=== PATIENT | male | born 1930 | race Caucasian/White ===

== ENCOUNTER → 2017-06-02 | Outpatient (CLI) | payer OTHER ==
[~2017-06-02] MED LIST: ACIDOPHILUS PR1 EACH PO; ACYCLOVIR 400400 MG PO; ALENDRONATE; CIPRO; CIPRO250 M1 PO; COLACE 100 MG100 MG PO; COSOPT EYE DROPS5 ML OPHTHALMIC; CYMBALTA30 MG PO; DETROL2 M1 PO; DIPHENHIST25 M2 PO; EXCEDRIN CAPLE1 EACH PO; EYE DROPS15 M1 OP; FAMOTIDINE 20 M20 MG PO; FLAGYL; FLOMAX0.4 MG PO; FLORINEF ACETA0.1 MG PO; FLUCONAZOLE 10100 MG PO; HYDROCODON-ACE1 EAC5 PO; HYDROCODON-ACE1 EAC7; HYDROCODON-ACE1 EAC7 PO; IBUPROFEN 200200 M1 PO; KEFLEX500 MG PO; LEVAQUIN 500 M500 MG PO; LEXAPRO 10 MG T10 MG PO; LEXAPRO20 MG PO; METOPROLOL SUCC25 M1 PO; METOPROLOL TART25 MG PO; MIDODRINE HCL 55 M1 PO; MOM PO; MYRBETRIQ25 MG PO; NOVOLOG100 UNIT/1; PHENERGAN 25 MG25 M1 PO; POTASSIUM PHOS PO; POTASSIUM20 PO; PREDNISONE 5 MG5 MG PO; PREDNISONE PO; PROTONIX40 M1 PO; REGLAN 10 MG TA10 MG PO; TRAMADOL; TRAMADOL 50 MG50 MG PO; TYLENOL325 MG PO; UNICOMPLEX M TA1 TA1 PO; XOPENEX0.63 MG/3 INH
== END ==
LOC: RAD 08:24 → EDSTATUS 08:28 → RAD 10:53 → SPEECH 10:53
DX: R13.12 Dysphagia, oropharyngeal phase (principal)

== ENCOUNTER → 2017-06-04 | Outpatient (CLI) | payer OTHER | LOC: NUC 08:18 | DX: C61 Malignant neoplasm of prostate (principal) ==

== ENCOUNTER 2017-07-09 14:22 | Inpatient (IN) | payer OTHER ==
[~2017-07-09] VITALS: Ht 172.7 cm; Wt 61.2 kg
[~2017-07-09 14:22] MED LIST changes: -HYDROCODON-ACE1 EAC7 PO
[2017-07-09 14:49] VITALS: BP 128/69
[2017-07-09 17:53] LABS: HEMOGLOBIN 10.2 gm/dL (14.0-18.0); MCH 30.4 pg (26.0-34.0); MCHC 32.9 g/dL (28.0-37.0); MCV 92.3 fL (80.0-100.0); PLATELET COUNT 482 thou/uL (150-400); RBC 3.36 mil/uL (4.50-6.00); RDW 14.1 % (10.5-14.5); WBC 12.5 thou/uL (4.0-11.0)
[2017-07-09 18:00] LABS: MANUAL DIFF YES
[2017-07-09 18:02] LABS: ALBUMIN 2.4 g/dL (3.4-5.0); CALCIUM 8.7 mg/dL (8.5-10.1); CREATININE 1.4 mg/dL (0.7-1.3); MAGNESIUM 2.1 mg/dL (1.8-2.4); POTASSIUM 4.1 mmol/L (3.5-5.1); TOTAL BILIRUBIN 0.3 mg/dL (<0.1-1.0); TOTAL PROTEIN 7.4 g/dL (6.4-8.2)
[2017-07-09 19:01] VITALS: BP 116/65
[2017-07-09 19:05] LABS: ABSOLUTE NEUTROPHILS 10.3 thou/uL (1.4-8.2); TOTAL CELL COUNT 100
[2017-07-10 00:16] VITALS: BP 121/61
[2017-07-10 03:27] VITALS: BP 132/67
[2017-07-10 07:13] LABS: HEMATOCRIT 29.8 % (42.0-52.0); HEMOGLOBIN 9.8 gm/dL (14.0-18.0); MCH 30.1 pg (26.0-34.0); MCHC 32.8 g/dL (28.0-37.0); MCV 91.7 fL (80.0-100.0); PLATELET COUNT 469 thou/uL (150-400); RBC 3.25 mil/uL (4.50-6.00); RDW 13.7 % (10.5-14.5); WBC 10.9 thou/uL (4.0-11.0)
[2017-07-10 07:14] LABS: MANUAL DIFF YES
[2017-07-10 07:24] LABS: CALCIUM 8.4 mg/dL (8.5-10.1); CREATININE 1.3 mg/dL (0.7-1.3)
[2017-07-10 07:39] VITALS: BP 133/66
[2017-07-10 08:37] LABS: ABSOLUTE NEUTROPHILS 9.3 thou/uL (1.4-8.2); ANISOCYTOSIS 1+; POLYCHROMASIA OCCASIONAL; TOTAL CELL COUNT 100
[2017-07-10 12:12] VITALS: BP 122/70
[2017-07-10 15:04] VITALS: BP 117/59
[2017-07-10 19:04] VITALS: BP 116/65
[2017-07-11 04:34] VITALS: BP 128/66
[2017-07-11 08:09] VITALS: BP 139/82
[2017-07-11 14:02] VITALS: BP 145/85
[2017-07-11 16:30] VITALS: BP 143/87
[2017-07-11 19:40] VITALS: BP 143/79
[2017-07-12 05:46] LABS: HEMOGLOBIN 10.2 gm/dL (14.0-18.0); MCH 30.3 pg (26.0-34.0); MCHC 32.8 g/dL (28.0-37.0); MCV 92.3 fL (80.0-100.0); PLATELET COUNT 472 thou/uL (150-400); RBC 3.36 mil/uL (4.50-6.00); RDW 14.1 % (10.5-14.5); WBC 9.5 thou/uL (4.0-11.0)
[2017-07-12 05:51] LABS: MANUAL DIFF YES
[2017-07-12 05:54] LABS: CALCIUM 7.8 mg/dL (8.5-10.1); CREATININE 1.3 mg/dL (0.7-1.3)
[2017-07-12 06:05] VITALS: BP 130/70
[2017-07-12 08:23] VITALS: BP 145/88
[2017-07-12 09:13] LABS: LARGE PLATELETS OCCASIONAL; TOTAL CELL COUNT 100
[2017-07-12] MEDS ORDERED: AZITHROMYCIN 2250 MG PO (10:34)
[2017-07-12] MEDS ORDERED: AUGMENTIN 875-1 EACH PO (10:34)
[2017-07-12 11:59] VITALS: BP 145/88
[2017-07-12 12:02] VITALS: BP 145/88
== END 2017-07-12 13:34 | disposition home health service (06) | DRG 177 ==
LOC: 4W 14:22 → ENTRNSPT 07-12 13:25 → EDTRNSPTSTS 07-12 13:29 → 4W 07-12 13:34
PROVIDERS: Internal Medicine Endocrinology, Diabetes & Metabolism; Internal Medicine Geriatric Medicine
DX: J69.0 Pneumonitis due to inhalation of food and vomit (principal); E43 Unspecified severe protein-calorie malnutrition; C79.51 Secondary malignant neoplasm of bone; C61 Malignant neoplasm of prostate; H40.9 Unspecified glaucoma; G89.29 Other chronic pain; F32.9 Major depressive disorder, single episode, unspecified; K21.9 Gastro-esophageal reflux disease without esophagitis; N40.0 Benign prostatic hyperplasia without lower urinary tract symptoms; Z88.1 Allergy status to other antibiotic agents; Z91.81 History of falling; Z98.42 Cataract extraction status, left eye; Z98.41 Cataract extraction status, right eye; Z90.49 Acquired absence of other specified parts of digestive tract
CPT/HCPCS: 10047

== ENCOUNTER → 2017-12-17 | Outpatient (CLI) | payer OTHER ==
[~2017-12-17] MED LIST changes: +AUGMENTIN 875-1 EACH PO; +AZITHROMYCIN 2250 MG PO; +CARDIZEM30 MG PO; +OXYBUTYNIN 5 MG5 M2 PO
== END ==
LOC: RAD 11:32
DX: R05 Cough (principal)

== ENCOUNTER 2017-12-23 11:53 | Inpatient (IN) | payer OTHER ==
[~2017-12-23] VITALS: Ht 170.2 cm; Wt 55.8 kg
--- NOTE | ~2017-12-23 | EKG ---
[address] [address] ELECTROCARDIOGRAM REPORT Name: NORAH CARRANZA Room #: 434-P ADM IN M.R.#: [id number] Admission: 12/23/17 Attend Phys: Frandy Raymond MD Discharge: Date of : 30 Report #: [id number] THIS REPORT FOR: //name// Test Date: 2017-12-25 Test Time: 09:28:32 Pat Name: NORAH CARRANZA Department: Room: 434 P Gender: M Contact Center Director: JLAMBELTON : 1930 Requested By: Frandy Raymond Order Number: [id number] MD: Lopez Ureña Measurements Intervals [place] Rate: 113 P: 40 [place]: 153 QRS: -74 QRSD: 121 T: 55 QT: 334 QTc: 458 Interpretive Statements Sinus tachycardia RBBB and LAFB Nonspecific ST segment abnormality Compared to ECG 05/30/2015 07:24:18 Sinus rhythm no longer present Electronically Signed On 12-25-2017 12:26:12 YARD ASSISTANT by Lopez Ureña [email or web address] <ELECTRONICALLY SIGNED> By: Lopez Ureña MD 12/25/17 1226 7 7 Lopez Ureña MD /FRANCINE
--- NOTE | ~2017-12-23 | HC ---
[facility] [place] [address] CONSULTATION Name: NORAH CARRANZA Room #: 434-P [facility] IN M.R.#: [id number] Admission: 12/23/17 Attend Phys: Frandy Raymond MD Discharge: 12/29/17 Date of : 30 Report #: [id number] THIS REPORT FOR: //name// CC: Frandy Franco REASON FOR CONSULTATION: Tachycardia. HISTORY OF PRESENT ILLNESS: The patient is an 87-year-old male presenting with weakness and worsening bronchitis. The patient denies problems with chest pain or chest tightness. He denies any shortness of breath. He denies PND, orthopnea. He denies presyncope or syncope. He has had a couple of recent falls including tripping over some objects, but no gail syncope. I have reviewed all his 12-lead EKGs from this hospitalization, which show sinus tachycardia. There was one that was read as possible atrial flutter, but I believe this is sinus tachycardia as well. REVIEW OF SYSTEMS: A 12-point review of systems was performed and was negative other than what I mentioned above. PAST MEDICAL HISTORY: Includes GI bleed, colectomy, diverticulitis, leg abscess, temporal arteritis, prior renal insufficiency, depression, nonsustained VT, esophagitis. SOCIAL HISTORY: Does not smoke. FAMILY HISTORY: Noncontributory. ALLERGIES: INCLUDE DOXYCYCLINE. MEDICATIONS: Have been reviewed. PHYSICAL EXAMINATION: VITAL SIGNS: Temperature is 36.8, pulse 102, respiration 19, blood pressure 120/77, sats are 95%. GENERAL: He is alert and oriented x 3, no acute distress. HEENT: Oropharynx is clear. NECK: Supple, with no thyromegaly. HEART: Regular rate and rhythm with no murmurs, rubs or gallops. LUNGS: Clear to auscultation bilaterally. ABDOMEN: Soft, nontender, nondistended with no hepatosplenomegaly and no rebound. EXTREMITIES: There is no clubbing, cyanosis or edema. NEUROLOGIC: Cranial nerves 2-12 are intact. LABORATORY DATA: Hemoglobin 9.3, white count 7.3, platelets 351. Chemistries: Sodium 137, potassium 3.9, BUN 12, creatinine 1.1. Troponin is negative x 2. [address] [address] CONSULTATION Name: NORAH CARRANZA LOUIS Room #: [address] [place] [address] IN .R.#: [id number] Admission: 12/23/17 Attend Phys: Frandy Raymond MD Discharge: 12/29/17 Date of : 30 Report #: [id number] ProBNP is 1111. Chest x-ray shows no acute pulmonary process. I have reviewed all his 12-lead EKGs, which show sinus tachycardia. No atrial arrhythmias and no evidence of ischemia. IMPRESSION: Tachycardia. In summary, the patient is an 87-year-old with evidence of sinus tachycardia on his EKG. There are no arrhythmias noted. I believe his tachycardia is likely physiologic and do not recommend any further treatment. He did have an echocardiogram this hospitalization showing an ejection fraction of 55% with no significant valvular disease. As such, I will sign off the case and please call back with any questions. <ELECTRONICALLY SIGNED> By: Chris No MD 01/14/18 1752 1554 11 Chris No MD /nt
--- NOTE | ~2017-12-23 | EKG ---
[address] [address] ELECTROCARDIOGRAM REPORT Name: NORAH CARRANZA Room #: 434-P ADM IN M.R.#: [id number] Admission: 12/23/17 Attend Phys: Frandy Raymond MD Discharge: Date of : 30 Report #: [id number] THIS REPORT FOR: //name// [facility] Test Date: 2017-12-27 Test Time: 13:47:43 Pat Name: NORAH CARRANZA Department: Room: 434 P Gender: M Visual Design Lead: Lindsay FAROOQ : 1930 Requested By: Frandy Raymond Order Number: [id number] MD: Chris No Measurements Intervals [place] Rate: 96 P: 53 HI: 154 QRS: -71 QRSD: 128 T: 58 QT: 373 QTc: 472 Interpretive Statements Sinus rhythm RBBB and LAFB Compared to ECG 12/26/2017 11:12:08 Electronically Signed On 12-27-2017 15:07:55 HYDROELECTRIC COMPONENT MACHINIST by Chris No [email or web address] <ELECTRONICALLY SIGNED> By: Chris No MD 12/27/17 1507 1347 1347 Chris No MD /FRANCINE
--- NOTE | ~2017-12-23 | H ---
[facility] [place] [address] HISTORY AND PHYSICAL Name: NORAH CARRANZA Room #: 434-P [facility] IN M.R.#: [id number] Admission: 12/23/17 Attend Phys: Frandy Raymond MD Discharge: 12/29/17 Date of : 30 Report #: [id number] THIS REPORT FOR: //name// CC: Frandy Franco CHIEF COMPLAINT: Fall, status post severe URI, dehydration, bronchitis with exacerbation. HISTORY OF PRESENT ILLNESS: An 87-year-old male with past medical history significant for trouble with swallowing and thickened liquids, was referred by the [place] physician for admission due to failed outpatient treatment for bronchitis with exacerbation. Recently on prednisone. Persistent symptoms with dehydration and multiple falls in the last month. The patient was in his usual state of health until 2-3 weeks ago, status post URI with cough, phlegm with episodes of aspiration with liquids multiple times. Denies any fever. Positive chills. Denies any chest pain. Positive cough with some clear to yellow to green. Denies any dizziness or lightheadedness. Multiple falls with no loss of consciousness. He hit his face on the left side per his son at bedside. Denies any focal neurological weakness. Denies any complaints of nausea, vomiting or diarrhea. Denies any complaints of palpitations or diaphoresis. Denies any trouble with his vision or hearing. REVIEW OF SYSTEMS: Rest of systems is negative. 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 CURRENT MEDICATIONS AT HOME: Zithromax; Augmentin recently; oxybutynin; hydrocodone with acetaminophen 2 tabs b.i.d. p.r.n.; dorzolamide and timolol, Cosopt 1 gtt. b.i.d.; acetaminophen 325; pantoprazole 40 mg; Reglan 5 mg daily; multivitamin with iron; Celexa; tamsulosin; Excedrin and Detrol 2 mg. He was recently discontinued on tramadol and prednisone, which patient took about 10 days prior, started with 2 tablets b.i.d. and then seems like tapered. ALLERGIES: DOXYCYCLINE. SOCIAL HISTORY: Nonsmoker. History of alcohol use. REVIEW OF SYSTEMS: As described above. PHYSICAL EXAMINATION: VITALS: Reviewed. GENERAL: Pleasant gentleman. Alert and oriented to self and place, [place] [address] HISTORY AND PHYSICAL Name: DILLONNORAH LOUIS Room #: 434-P [facility] IN M.R.#: [id number] Admission: 12/23/17 Attend Phys: Frandy Raymond MD Discharge: 12/29/17 Date of : 30 Report #: [id number] necessarily to time. Seems a little bit emaciated and malnourished. SKIN: Warm and dry. No thyromegaly. NECK: Supple. No distended neck veins. HEENT: Pupils equal, symmetric and reactive to light. Extraocular muscle movements intact. LUNGS: Coarse breath sounds in all lung de los santos, especially in the right upper lobe. CARDIOVASCULAR SYSTEM: S1 irregular. Pulses equal bilaterally. EXTREMITIES: No edema or any bruising noted. No hematomas noted. Homans sign negative. No significant joint effusions or musculoskeletal abnormalities noted on examination. ABDOMEN: Soft and nontender. Bowel sounds positive. No palpable organomegaly. NEUROLOGIC: Full neurologic examination, gait was not evaluated due to risk of fall acutely with acute renal failure and dehydration. Otherwise, alert, awake and oriented. No signs of acute CVA. No focal neurological weakness noted. Unable to perform full neurological examination due to flail, debilitated condition. LABORATORY EVALUATION: Mildly elevated white count of 12.3. UA: Trace protein. Leukocyte esterase negative. BUN and creatinine of 28/1.5. ____ normal, less than 0.9. Mildly elevated alk phos up to 308. Lipase 56. Troponin negative. H and H of 10/32.8. Chest x-ray negative. No CTA performed as no recent change in mental status noted, other than chronic cognitive impairment. ASSESSMENT AND PLAN: An 87-year-old male with multiple medical problems, status post multiple falls, recent upper respiratory infection, negative for influenza, bronchitis with exacerbation, probably complicated by bronchitis/aspiration pneumonitis. Await treatment as chest x-ray clear. Elevated white count could be secondary to steroids. Recently finished 2 courses of antibiotics with Zithromax and Augmentin. If spikes fever, consider blood cultures and broad spectrum antibiotics with Zosyn/Avelox. Consider steroid treatments if significant wheezing. NPO past midnight. Speech and swallow evaluation in the morning. Redo swallow evaluation if necessary. Physical Therapy/Occupational Therapy evaluation in the morning. Overactive bladder, continue Detrol and Flomax. Depression, continue Lexapro. Gastroesophageal reflux disease, continue Reglan and continue Protonix. Glaucoma, continue dorzolamide and timolol drops. 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 Multiple falls, probably polypharmacy along with debilitated condition with dehydration and acute renal failure probable etiology. IV fluids at 75 mL an hour. Bolus with Lactated Ringer's 1000 mL in [facility] [address] [place] [address] HISTORY AND PHYSICAL Name: DILLONNORAH Room #: 434-P [facility] IN M.R.#: [id number] Admission: 12/23/17 Attend Phys: Frandy Raymond MD Discharge: 12/29/17 Date of : 30 Report #: [id number] the ER. We will monitor renal functions, telemetry monitoring. Social Service consult. Deep venous thrombosis prophylaxis with Lovenox. <ELECTRONICALLY SIGNED> By: Frandy Raymond MD 01/03/18 0856 0706 0835 Frandy Raymond MD /nt
--- NOTE | ~2017-12-23 | EKG ---
[address] [address] ELECTROCARDIOGRAM REPORT Name: NORAH CARRANZA Room #: 434-P ADM IN M.R.#: [id number] Admission: 12/23/17 Attend Phys: Frandy Raymond MD Discharge: Date of : 30 Report #: [id number] THIS REPORT FOR: //name// [facility] Test Date: 2017-12-26 Test Time: 11:12:08 Pat Name: NORAH CARRANZA Department: Room: 434 P Gender: M Vending Service Technician: REGLA : 1930 Requested By: Frandy Raymond Order Number: [id number] MD: Jesus Moore Measurements Intervals [place] Rate: 105 P: HI: QRS: -68 QRSD: 121 T: 35 QT: 330 QTc: 437 Interpretive Statements Sinus tachycardia RBBB and LAFB Compared to ECG 12/25/2017 09:28:32 No significant change was found Electronically Signed On 12-27-2017 7:44:46 RAMP ATTENDANT by Jesus Moore [email or web address] <ELECTRONICALLY SIGNED> By: Jesus Moore MD, [facility] 12/27/17 0744 11 11 Jesus Moore MD, [facility] /EPI
--- NOTE | ~2017-12-23 | 2DMMODE ---
[facility] [address] [place] [address] 2 D/M-MODE ECHOCARDIOGRAM Name: DILLONNORAH MYERS Room #: 434-P [facility] IN .R.#: [id number] Admission: 12/23/17 Attend Phys: Frandy Raymond MD Discharge: Date of : 30 Date of Service: 12/27/17 1307 Report #: [id number] THIS REPORT FOR: //name// APPROVED REPORT Study performed: 12/27/2017 11:11:08 EXAM: Comprehensive 2D, Doppler, and color-flow Echocardiogram Patient Location: Bedside Room #: 239 Status: routine BSA: 1.64 HR: 95 bpm BP: 104/70 mmHg Other Information Study Quality: Adequate Indications tachycardia, cough, short of breath. 2D Dimensions RVDd: 40.88 mm LVEF(%): 54.07 (>50%) IVSd: 10.19 (7-11mm) LVOT Diam: 20.85 (18-24mm) LVDd: 40.74 mm PWd: 8.89 (7-11mm) Ascending Ao: 30.59 (22-36mm) LVDs: 29.50 (25-40mm) Aortic Root: 33.81 mm Nuñze's LVEF: 54.07 % Volumes Left Atrial Volume (Systole) Single Plane 4CH: 29.02 mL Single Plane 2CH: 30.34 mL LA ESV Index: 21.00 mL/m2 Aortic Valve AoV Peak Eduard.: 1.19 m/s AO Peak Gr.: 5.68 mmHg LVOT Max P.68 mmHg LVOT Max V: 0.82 m/s YING Vmax: 2.34 cm2 Mitral Valve E/A Ratio: 0.7 MV Decel. Time: 210.27 ms MV E Max Eduard.: 0.70 m/s [facility] [place] [address] 2 D/M-MODE ECHOCARDIOGRAM Name: NORAH CARRANZAIFFORD Room #: 434-P [facility] IN ..#: [id number] Admission: 12/23/17 Attend Phys: Frandy Raymond MD Discharge: Date of : 30 Date of Service: 12/27/17 1307 Report #: [id number] MV A Eduard.: 0.94 m/s MV PHT: 60.98 ms IVRT: 86.51 ms Pulmonary Valve PV Peak Eduard.: 0.73 m/s PV Peak Gr.: 2.14 mmHg Pulmonary Vein P Vein S: 0.64 m/s P Vein A: 0.48 m/s P Vein D: 0.34 m/s P Vein A Dur.: 90.0 msec P Vein S/D Ratio: 1.88 Tricuspid Valve TR Peak Eduard.: 2.96 m/s RAP Estimate: 5.00 mmHg TR Peak Gr.: 34.99 mmHg PA Pressure: 40.00 mmHg Left Ventricle The left ventricle is normal size. Regional wall motion is not well visualized but grossly normal. There is normal left ventricular wall thickness. Left ventricular systolic function is normal. LVEF is 50-55%. Mild diastolic dysfunction is present (impaired relaxation pattern). Right Ventricle The right ventricle is normal size. The right ventricular systolic function is normal. Atria The left atrium size is normal. The right atrium size is normal. Aortic Valve The aortic valve is mildly sclerotic. Trace aortic regurgitation. There is no aortic valvular stenosis. Mitral Valve Mild mitral annular calcification. Trace to mild mitral regurgitation. No evidence of mitral valve stenosis. Tricuspid Valve The tricuspid valve is normal in structure. Mild to moderate tricuspid regurgitation. Estimated PAP is 40mmHg. Pulmonic Valve The pulmonary valve is normal in [place] [address] 2 D/M-MODE ECHOCARDIOGRAM Name: NORAH CARRANZA Room #: 434-P [facility] IN [facility]#: [id number] Admission: 12/23/17 Attend Phys: Frandy Raymond MD Discharge: Date of : 30 Date of Service: 12/27/17 1307 Report #: [id number] regurgitation. Great Vessels The aortic root is normal in size. The ascending aorta is normal in size. IVC is normal in size and collapses >50% with inspiration. Pericardium There is no pericardial effusion. <Conclusion> Left ventricular systolic function is normal. LVEF is 50-55%. Mild diastolic dysfunction The aortic valve is mildly sclerotic, no stenosis. Trace aortic regurgitation. Mild mitral annular calcification. Mild mitral regurgitation. Mild to moderate tricuspid regurgitation. Estimated pulmonary artery pressure of 40mmHg. There is no pericardial effusion. <ELECTRONICALLY SIGNED> By: Jesus Moore MD, [facility] 12/27/17 1307 06 06 Jesus Moore MD, FACC /INF
--- NOTE | ~2017-12-23 | HC ---
[facility] [place] [address] CONSULTATION Name: NORAH CARRANZA Room #: 434-P ADM IN M.R.#: [id number] Admission: 12/23/17 Attend Phys: Frandy Raymond MD Discharge: Date of : 30 Report #: [id number] THIS REPORT FOR: //name// CC: [facility]andy Brian [facility] DATE OF SERVICE: 12/24/2017 HISTORY OF PRESENT ILLNESS: This is an 87-year-old male patient who is not able to provide a very good history. He indicates that he has swallowing difficulty. He does not know how long it is going on, but apparently for several years. He has been worked up. He was advised to take thickened liquids and he does not like that. He stays behind on those liquids and food in general and then gets dehydrated. He started feeling weak, which happened about a few days ago. He also had falls. He indicates he has a moderately severe generalized weakness, which started spontaneously without any trauma. He does not know any aggravating or relieving factors for this weakness. On examination later on it looks like he is weak in the left lower extremity, but it is not clear how long it is going on. REVIEW OF SYSTEMS: Indicate that he has some bronchitis. 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 His last admission here was in July 2017, but he has been admitted here before also. The last MRI of the spine was in 2014 and that does demonstrate finding consistent with metastasis. Otherwise, associated with present symptomatology, does not complain of any new eye, ENT, cardiac, respiratory, musculoskeletal, constitutional, dermatological, hematological, psychiatric, throat or allergic symptoms, he does have some GI symptom of dysphagia as described above, he does have a history of prostate cancer. PAST MEDICAL HISTORY: Positive for prostate cancer. FAMILY HISTORY: Negative for early age stroke. SOCIAL HISTORY: Indicates his will be coming in later on, but I was not able to talk to his . PHYSICAL EXAMINATION: His examinations indicate he is alert. He is responsive. He can follow simple command. He is hard of hearing. He believes his memory and fund of knowledge is at baseline. His cranial nerve examination 2-12 is unremarkable. His strength, sensation, reflexes and tones are symmetrical in upper extremity. In the lower extremity, he is weak in the left lower extremity especially in the proximal muscles. His reflexes are difficult to elicit, but his position sense is intact and tone is symmetrical. He does not have any [address] [address] CONSULTATION Name: NORAH CARRANZAIFFORD Room #: 434-P [facility] IN .R.#: [id number] Admission: 12/23/17 Attend Phys: Frandy Raymond MD Discharge: Date of : 30 Report #: [id number] cerebellar sign. I could not look at his fundus. His vision looks adequate. His pulses are palpable. He has no edema, cyanosis, or jaundice. He is a well-developed individual who does not have any dysmorphic features of eyes, ears and face. His heart examination is mostly unremarkable. He has no respiratory difficulty or rhonchi on either side. His blood pressure is 106/64, respiration is 20, pulse is 112, and temperature is 97.6. LABORATORY DATA: His hemoglobin is 9.4. His sodium is normal. His BUN and creatinine was high when he was admitted, but has improved. IMPRESSION: 1. The patient had generalized weakness. That is most likely secondary to dehydration and may be nutritional deficiency because his albumin is low. 2. Left leg weakness. That is worrisome especially with his prior history. I do not know how much is new and how much is old, but I think because of metastatic history, we should rule out other etiologies especially because the patient also had a couple of falls. I will suggest starting with an MRI of the lumbar spine, but we may need further workup in this patient. Some of the workup we cannot do including myasthenia markers, which has to be done as an outpatient because of the hospital policy and an EMG. I discussed all of it with the patient in detail. RECOMMENDATIONS: 1. We will get an MRI. 2. We will see how he does with physical therapy. 3. If we are able to contact the family, we will talk to them. Thank you very much for allowing me to share in the management of this patient and we will follow this patient with you. <ELECTRONICALLY SIGNED> By: Joel Owens MD 12/28/17 0721 1127 1459 Joel Owens MD /nt
[~2017-12-23 11:53] MED LIST changes: -CARDIZEM30 MG PO; -OXYBUTYNIN 5 MG5 M2 PO
[2017-12-23 11:56] VITALS: BP 106/60
[2017-12-23 13:05] LABS: ABSOLUTE NEUTROPHILS 10.6 thou/uL (1.4-8.2); BASOPHILS 0.4 % (0.0-2.0); EOSINOPHILS 0.5 % (0.0-3.0); HEMATOCRIT 32.8 % (42.0-52.0); HEMOGLOBIN 10.8 gm/dL (14.0-18.0); LYMPHOCYTES 6.1 % (24.0-44.0); MCH 30.9 pg (26.0-34.0); MCV 93.6 fL (80.0-100.0); MONOCYTES 6.9 % (1.0-8.0); PLATELET COUNT 389 thou/uL (150-400); POLYS 86.1 % (36.0-66.0); RBC 3.51 mil/uL (4.50-6.00); RDW 13.7 % (10.5-14.5); WBC 12.3 thou/uL (4.0-11.0)
[2017-12-23 13:12] LABS: CALCIUM 8.7 mg/dL (8.5-10.1); CREATININE 1.5 mg/dL (0.7-1.3); POTASSIUM 4.3 mmol/L (3.5-5.1)
[2017-12-23 13:19] LABS: ALBUMIN 2.4 g/dL (3.4-5.0); DIRECT BILIRUBIN 0.2 mg/dL (<0.1-0.3); TOTAL BILIRUBIN 0.4 mg/dL (<0.1-1.0); TOTAL PROTEIN 7.5 g/dL (6.4-8.2)
[2017-12-23] MEDS ORDERED: OXYBUTYNIN 5 MG5 M2 PO (14:04)
[2017-12-23 14:49] LABS: URINE BILIRUBIN NEGATIVE (Negative); URINE BLOOD NEGATIVE (Negative); URINE CLARITY CLEAR; URINE COLOR YELLOW; URINE GLUCOSE-RANDOM* NEGATIVE (Negative); URINE KETONES NEGATIVE (Negative); URINE LEUKOCYTES-REFLEX NEGATIVE (Negative); URINE NITRITE-REFLEX NEGATIVE (Negative); URINE PROTEIN (DIPSTICK) TRACE (Negative); URINE SPECIFIC GRAVITY 1.015 (1.005-1.035)
[2017-12-23 16:15] VITALS: BP 158/76
[2017-12-23 17:05] VITALS: BP 158/76
[2017-12-23 17:50] VITALS: BP 136/81
[2017-12-23 19:43] VITALS: BP 128/70
[2017-12-24 03:22] VITALS: BP 90/64
[2017-12-24 04:00] LABS: HEMATOCRIT 28.2 % (42.0-52.0); HEMOGLOBIN 9.4 gm/dL (14.0-18.0); MCH 31.3 pg (26.0-34.0); MCHC 33.3 g/dL (28.0-37.0); MCV 93.9 fL (80.0-100.0); RDW 13.4 % (10.5-14.5); WBC 9.3 thou/uL (4.0-11.0)
[2017-12-24 04:14] LABS: ALBUMIN 1.9 g/dL (3.4-5.0); CALCIUM 7.7 mg/dL (8.5-10.1); CREATININE 1.2 mg/dL (0.7-1.3); POTASSIUM 4.3 mmol/L (3.5-5.1); TOTAL BILIRUBIN 0.4 mg/dL (<0.1-1.0)
[2017-12-24 08:00] VITALS: BP 106/64
[2017-12-24 16:00] VITALS: BP 117/75
[2017-12-24 19:09] VITALS: BP 121/55
[2017-12-25 03:53] VITALS: BP 129/67
[2017-12-25 07:17] VITALS: BP 146/70
[2017-12-25 15:33] VITALS: BP 131/64
[2017-12-25 18:33] LABS: CALCIUM 7.8 mg/dL (8.5-10.1); CREATININE 1.1 mg/dL (0.7-1.3); POTASSIUM 4.2 mmol/L (3.5-5.1)
[2017-12-25 18:35] LABS: HEMATOCRIT 30.1 % (42.0-52.0); HEMOGLOBIN 10.1 gm/dL (14.0-18.0); MCH 31.3 pg (26.0-34.0); MCHC 33.6 g/dL (28.0-37.0); MCV 93.1 fL (80.0-100.0); RBC 3.24 mil/uL (4.50-6.00); RDW 13.8 % (10.5-14.5); WBC 8.2 thou/uL (4.0-11.0)
[2017-12-25 19:23] VITALS: BP 139/69
[2017-12-26 04:47] LABS: ABSOLUTE NEUTROPHILS 7.1 thou/uL (1.4-8.2); BASOPHILS 0.2 % (0.0-2.0); EOSINOPHILS 0.5 % (0.0-3.0); HEMATOCRIT 29.1 % (42.0-52.0); HEMOGLOBIN 9.7 gm/dL (14.0-18.0); MCH 31.2 pg (26.0-34.0); MCHC 33.3 g/dL (28.0-37.0); MCV 93.8 fL (80.0-100.0); MONOCYTES 9.1 % (1.0-8.0); PLATELET COUNT 361 thou/uL (150-400); POLYS 83.2 % (36.0-66.0); RDW 13.6 % (10.5-14.5); WBC 8.5 thou/uL (4.0-11.0)
[2017-12-26 05:05] VITALS: BP 131/74
[2017-12-26 05:11] LABS: ALBUMIN 1.8 g/dL (3.4-5.0); ANION GAP 9 mmol/L (7-16); BUN 15 mg/dL (7-18); CALCIUM 7.6 mg/dL (8.5-10.1); CHLORIDE 104 mmol/L (98-107); CO2 23 mmol/L (21-32); CREATININE 1.1 mg/dL (0.7-1.3); GLUCOSE 93 mg/dL (74-106); POTASSIUM 3.7 mmol/L (3.5-5.1); SGOT 71 U/L (15-37); SGPT 59 U/L (30-65); SODIUM 136 mmol/L (136-145); TOTAL BILIRUBIN 0.3 mg/dL (<0.1-1.0); TOTAL PROTEIN 6.2 g/dL (6.4-8.2)
[2017-12-26 07:45] VITALS: BP 122/74
[2017-12-26 09:30] VITALS: BP 122/74
[2017-12-26 11:15] LABS: TROPONIN-I < 0.04 ng/mL (<0.06)
[2017-12-26 15:30] VITALS: BP 130/80
[2017-12-26 20:09] VITALS: BP 118/64
[2017-12-27 02:02] VITALS: BP 0/0
[2017-12-27 04:40] LABS: CALCIUM 7.5 mg/dL (8.5-10.1); CREATININE 1.1 mg/dL (0.7-1.3); POTASSIUM 3.9 mmol/L (3.5-5.1)
[2017-12-27 05:14] VITALS: BP 120/58
[2017-12-27 05:16] LABS: ABSOLUTE NEUTROPHILS 5.8 thou/uL (1.4-8.2); BASOPHILS 0.2 % (0.0-2.0); EOSINOPHILS 0.6 % (0.0-3.0); HEMOGLOBIN 9.3 gm/dL (14.0-18.0); LYMPHOCYTES 8.9 % (24.0-44.0); MCH 30.9 pg (26.0-34.0); MCHC 33.2 g/dL (28.0-37.0); MCV 93.1 fL (80.0-100.0); MONOCYTES 10.6 % (1.0-8.0); PLATELET COUNT 351 thou/uL (150-400); POLYS 79.7 % (36.0-66.0); RDW 13.7 % (10.5-14.5); WBC 7.3 thou/uL (4.0-11.0)
[2017-12-27 07:12] VITALS: BP 120/77
[2017-12-27 16:07] VITALS: BP 142/84
[2017-12-27 20:13] VITALS: BP 138/73
[2017-12-28 03:40] VITALS: BP 112/73
[2017-12-28 08:00] VITALS: BP 100/63
[2017-12-28 15:49] VITALS: BP 108/58
[2017-12-28 19:24] VITALS: BP 123/73
[2017-12-29 04:00] VITALS: BP 105/58
[2017-12-29 06:17] LABS: ALBUMIN 1.9 g/dL (3.4-5.0); CALCIUM 8.1 mg/dL (8.5-10.1); CREATININE 1.3 mg/dL (0.7-1.3); MAGNESIUM 2.2 mg/dL (1.8-2.4); PHOSPHORUS 2.7 mg/dL (2.5-4.9); TOTAL BILIRUBIN 0.2 mg/dL (<0.1-1.0); TOTAL PROTEIN 6.3 g/dL (6.4-8.2)
[2017-12-29 06:47] LABS: % SATURATION 18 % (20-39); IRON 22 ug/dL (65-175); TIBC 124 ug/dL (250-450)
[2017-12-29 09:04] VITALS: BP 114/56
[2017-12-29] MEDS ORDERED: CARDIZEM30 MG PO (11:14)
[2017-12-29 12:05] VITALS: BP 114/56
[2017-12-29 16:27] VITALS: BP 101/57
[2017-12-29 16:53] VITALS: BP 108/61
== END 2017-12-29 18:21 | disposition home health service (06) | DRG 70 ==
LOC: ER 11:53 → EROBS 15:01 → 4S 15:01
PROVIDERS: Emergency Medicine; Hospitalist; Registered Nurse
DX: G93.40 Encephalopathy, unspecified (principal); E43 Unspecified severe protein-calorie malnutrition; N17.9 Acute kidney failure, unspecified; Z68.1 Body mass index [BMI] 19.9 or less, adult; H40.9 Unspecified glaucoma; F32.9 Major depressive disorder, single episode, unspecified; G89.29 Other chronic pain; N40.0 Benign prostatic hyperplasia without lower urinary tract symptoms; D64.9 Anemia, unspecified; K21.9 Gastro-esophageal reflux disease without esophagitis; J40 Bronchitis, not specified as acute or chronic; T50.905A Adverse effect of unspecified drugs, medicaments and biological substances, initial encounter; J06.9 Acute upper respiratory infection, unspecified; M31.6 Other giant cell arteritis; Z93.3 Colostomy status; Z90.49 Acquired absence of other specified parts of digestive tract; Z98.42 Cataract extraction status, left eye; Z98.41 Cataract extraction status, right eye; Z88.1 Allergy status to other antibiotic agents; Z85.46 Personal history of malignant neoplasm of prostate; Z85.830 Personal history of malignant neoplasm of bone; Y92.89 Other specified places as the place of occurrence of the external cause
CPT/HCPCS: 10100

== ENCOUNTER 2018-02-01 10:53 | Inpatient (IN) | payer OTHER ==
[2018-02-01] VITALS (8 sets, daily range): BP systolic 85–109; BP diastolic 47–87
[~2018-02-01] VITALS: Ht 172.7 cm; Wt 56.1 kg
--- NOTE | ~2018-02-01 | HC ---
[facility] [place] [address] CONSULTATION Name: NORAH CARRANZA Room #: 216-P ADM IN M.R.#: [id number] Admission: 02/01/18 Attend Phys: Shayan Pham DO Discharge: Date of : 30 Report #: [id number] THIS REPORT FOR: //name// CC: Shayan Franco PRIMARY CARE PHYSICIAN: Dr. Roc Franco. REFERRING PHYSICIAN: Dr. Pham. REASON FOR REFERRAL: Acute hypoxic respiratory failure. HISTORY OF PRESENT ILLNESS: The patient is an 87-year-old white male who was brought to the Emergency Room with generalized weakness. The patient became hypoxic since admission. A pulmonary consultation was requested. The patient has known prostatic cancer. He has known metastatic disease to the skeletal system including his lungs. He has also been dealing with generalized weight loss, malnutrition. Plan was to place a PEG tube in the near future. According to family, he lost approximately 40 pounds over the past month. When the patient was admitted he was found to be hypoxic and was subsequently transferred to the ICU. Currently, he is on Ventimask. Saturations are above 90%. Appears tachypneic, appears weak. Most of the history is obtained from the who is present in the room. In reviewing the records, the patient's consultants have discussed the possibility of palliative care. The patient was to see Dr. Franco in the future regarding this matter. 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 That was initially diagnosed in 2008, with recurrent disease in 2015 with metastases. He has been on LHRH antagonist. He has known acute chronic kidney disease. He has had prior aspiration pneumonia. His baseline creatinine is 1.9. He also has gastroesophageal reflux disease, glaucoma, polymyalgia rheumatica, history of left lower extremity abscess, hepatic esophagitis, depression, history of nonsustained ventricular tachycardia, paroxysmal atrial fibrillation, urinary retention. ALLERGIES: DOXYCYCLINE, CAUSES RASH. HOME MEDICATIONS: Reviewed. This include oxybutynin, hydrocodone, Protonix, Reglan, multivitamins, Lexapro, Flomax, Excedrin, Detrol. FAMILY HISTORY: Noncontributory. SOCIAL HISTORY: The patient denies tobacco use. He drinks socially. [address] [address] CONSULTATION Name: NORAH CARRANZAIFFORD Room #: 216-P [facility] IN M.R.#: [id number] Admission: 02/01/18 Attend Phys: Shayan Pham DO Discharge: Date of : 30 Report #: [id number] REVIEW OF SYSTEMS: Notable for marked weight loss over the past month, at least 40 pounds, with marked deconditioning and weakness. MEDICAL DIRECTIVE: He is a DNR. PHYSICAL EXAMINATION: GENERAL: He is in moderate respiratory distress due to dyspnea. He is not coherent. VITAL SIGNS: Temperature is 98 degrees Fahrenheit, pulse is 100, respiratory rate is 21, blood pressure is 105/55 mmHg and saturation 96%. HEENT: Normocephalic, atraumatic. NECK: Supple, without any lymphadenopathy or thyromegaly. CHEST: Breath sounds are fair. Few scattered crackles in the bases. No wheezes. CARDIOVASCULAR: Normal S1, S2. There are no murmurs or gallop. There is no JVD. There is no carotid bruit. Pulses are 2+/4+ bilaterally. ABDOMEN: Soft, nontender, no organomegaly or masses felt. GENITOURINARY: Deferred. RECTAL: Deferred. EXTREMITIES: No cyanosis, clubbing. Trace bilateral ankle edema. NEUROLOGIC: The patient moves all extremities grossly. No focal deficits noted. LABORATORY DATA: Chest x-ray shows progressive diffuse bilateral lung masses. CT head shows no acute abnormalities. BNP is 4600. Electrolytes: Sodium 143, potassium 5.3, chloride 106, CO2 is 20, BUN is 48, creatinine is 2.7, alkaline phosphatase is markedly elevated, mildly abnormal liver enzymes. WBC 14,200, hemoglobin 13, platelets mildly elevated. No evidence of significant bandemia. Albumin 1.7. Arterial blood gas revealed pH 7.34, pCO2 of 36, pO2 of 76 on supplemental O2. IMPRESSION: 1. Acute hypoxic respiratory failure in this 87-year-old white male. Etiology due to diffuse enlarging bilateral metastatic prostate cancer to the lungs. Cannot rule out possibility of pneumonia. 2. Prostate cancer with diffuse metastases including skeletal and pulmonary system. 3. Marked malnutrition, weight loss, at least 40 pounds over the past month. 4. Severe protein calorie malnutrition with cachexia. 5. Acute kidney injury/chronic kidney disease, baseline creatinine appears to be around 1.5 and today it is 2.9. 6. Anemia due to chronic disease. 7. Dysphagia, odynophagia, aspiration risk, there were plans for possible feeding tube placement. 8. Overall outlook appears to be quite dismal given progressive prostate [facility] [address] [place] [address] CONSULTATION Name: NORAH CARRANZA Room #: 216-P ADM IN M.R.#: [id number] Admission: 02/01/18 Attend Phys: Shayan Pham DO Discharge: Date of : 30 Report #: [id number] cancer, now with acute respiratory failure. RECOMMENDATIONS: I will continue O2 to keep saturation around 90%. DVT and GI prophylaxis will be addressed. Overall, I believe palliative care may be the most appropriate in this patient with worsening clinical deterioration. I would recommend hospice consultation. I have discussed this with the . She voices understanding and appears to be realistic that the patient will not get better from his disease. Thank you for this consultation. <ELECTRONICALLY SIGNED> By: Jignesh Phillip MD 02/02/18 1608 [id number] Jignesh Phillip MD /nt
--- NOTE | ~2018-02-01 | EKG ---
[place] [address] [place] [address] ELECTROCARDIOGRAM REPORT Name: NORAH CARRANZA LOUIS [id number] Admission: 02/01/18 Attend Phys: Discharge: Date of : 30 Report #: [id number] THIS REPORT FOR: //name// [facility] ED Test Date: 2018-02-01 Test Time: 11:05:39 Pat Name: NORAH CARRANZA Department: Room: Gender: M [employer] Cutting Machine Operator: STORMMAC : 1930 Requested By: Koffi Alvarez Order Number: [id number] MD: Jesus Moore Measurements Intervals Fox Rate: 119 P: 66 VT: 147 QRS: -87 QRSD: 109 T: 80 QT: 342 QTc: 482 Interpretive Statements Sinus tachycardia Incomplete RBBB and LAFB Borderline prolonged QT interval Compared to ECG 12/27/2017 13:47:43 Sinus tachycardia has replaced sinus rhythm Electronically Signed On 02-01-2018 12:32:53 CDT by Jesus Moore [email or web address] <ELECTRONICALLY SIGNED> By: Jesus Moore MD, [facility] 02/01/18 1232 1105 1105 Jesus Moore MD, [facility] /EPI
--- NOTE | ~2018-02-01 | HC ---
[facility] [place] [address] CONSULTATION Name: NORAH CARRANZA Room #: 216-P ADM IN M.R.#: [id number] Admission: 02/01/18 Attend Phys: Shayan Pham DO Discharge: Date of : 30 Report #: [id number] THIS REPORT FOR: //name// CC: Shayan Franco MD PHYSICIAN REQUESTING CONSULTATION: Anthony Quintana M.D. REASON FOR CONSULTATION: Metastatic prostate cancer. HISTORY OF PRESENT ILLNESS: The patient is a very pleasant 87-year-old male, who I followed in the office with a history of prostate cancer since 2007. At that time, he had TURP with 3 of 30 chips showing cancer. A bone scan in 12/2014 showed evidence of metastatic disease and he was begun on hormone therapy. Unfortunately, recently, the patient progressed and was having troubles with aspiration and was not thought to be strong enough to take second line of hormone therapy. I talked to Dr. Lin. We had both thought that palliative care may be appropriate. Dr. Franco had a discussion with the patient last week; we are not sure what the upshot of that was, but the patient was sent for tube feeding placement with Dr. Elian Lin. So, I am assuming the patient wished to proceed with alimentation. I tried calling Dr. Franco this morning. His answering service will not leave a message for him to call me back until after 08:00. I will try to reach him later and I tried calling his at home and there is no answer. The answering machine picked up, but it did not say who we have reached or what number, so I could not leave a message. The patient evidently came into the hospital with progressive weakness and fatigue, having been scheduled for feeding tube placement and was thought to be too weak and was admitted. He was also thought to have some mental status changes yesterday by the family, particularly his . He has also had some generalized pain. He had been using a walker, but is unable to walk as much lately. Supposedly, he has lost about 40 pounds in the last month or so and has not really eaten much in the last 2 months. He also has odynophagia reported. The patient is not able to communicate much and a lot of his answers are repeats of the same comments. PAST MEDICAL HISTORY: Past history is notable for the metastatic prostate cancer since 2007 diagnosis and recurrence metastatic noted in 12/2014. Recently, he had been on an LHRH antagonist. Had also been on Xgeva because of renal insufficiency. Also has a history of aspiration with difficulties back in 07/2017 and also most recently in 12/2017, with further pneumonitis and worsening aspiration. He also has history of chronic kidney disease with a creatinine of 1.9 and now, it is 2.7 on admission. Also, history of right sciatic pain. Also, history of GERD, glaucoma and polymyalgia rheumatica in the past, left lower extremity abscess, history of herpetic esophagitis, history of depression, nonsustained ventricular tachycardia, also history of paroxysmal [facility] [address] [place] [address] CONSULTATION Name: NORAH CARRANZA LOUIS Room #: 216-P ADM IN M.R.#: [id number] Admission: 02/01/18 Attend Phys: Shayan Pham, DO Discharge: Date of : 30 Report #: [id number] atrial fibrillation and urinary retention. SOCIAL HISTORY: He lives with his in a house with 4 steps. 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 MEDICATIONS: At this time in the hospital currently include citalopram 10 daily, multivitamin with iron daily, metoclopramide 5 mg daily, pantoprazole 40 daily, oxybutynin 5 b.i.d., tamsulosin 0.8 at bedtime, dorzolamide timolol eyedrops b.i.d., fentanyl IV p.r.n., lorazepam IV p.r.n., morphine p.r.n., diltiazem 30 mg scheduled q.6h. p.o., hydrocodone p.r.n. and IV fluids. LABORATORY DATA: Lab reviews here show a creatinine of 2.9 with a BUN of 50. Electrolytes fairly unremarkable. AST of 49, total bilirubin 0.8 and alkaline phosphatase 1096. Total protein 6.9 with an albumin of 1.7. Lactic acid of 3; note that back in December, it had been 1.3. Iron levels in December consistent with either anemia of chronic illness or possible iron deficiency. Coags not recently checked. WBC 11.3, hemoglobin 10.8, MCV 94, platelets 334,000 and 84% segmented neutrophils. U/A is pending. RADIOLOGIC STUDIES: This admit include a CT head, which is non-acute. Chest x-ray showed no acute cardiopulmonary abnormalities, did have extensive osseous and pulmonary metastatic disease. PHYSICAL EXAMINATION: GENERAL: The patient appears his stated age. He is an elderly white male in bed in the ICU. VITAL SIGNS: Height is 5 feet 8, which is 172.7 cm. Weight is 116 pounds, which is 52.6 kilograms. Blood pressure is 118/64, O2 sat 96%, respirations 22, pulse 103 and temperature axillary is 98.3. MOOD: The patient appears comfortable. NEUROLOGIC: The patient is not able to answer questions very well. He seems to be persevering in his answers that do not always make sense, though he is able to answer simple questions. He is moving arms and legs, though very slowly. HEENT: Oropharynx is very dry. No erythema or leukoplakia or ulcerated lesions. LUNGS: Mostly clear with occasional soft rhonchi, but I think it is more upper airway difficulty clearing secretions. HEART: Regular rate, slightly tachycardic. LYMPHATICS: No enlarged lymph nodes in the supraclavicular, cervical, axillary or inguinal region. ABDOMEN: Scaphoid. No masses. SKIN: Dry, several small ecchymoses. ASSESSMENT AND PLAN: 1. Metastatic prostate cancer. The patient too weak to benefit from additional [facility] [address] [place] [address] CONSULTATION Name: NORAH CARRANZA Room #: 216-P [facility] IN M.R.#: [id number] Admission: 02/01/18 Attend Phys: Shayan Pham DO Discharge: Date of : 30 Report #: [id number] therapy for his cancer; I think it will make him sicker and would not suggest it. 2. Dysphagia and possible odynophagia and aspiration difficulties, with tentative plans for tube feeding. 3. Code status: Currently, DNR. We will try to reach Dr. Franco to see what discussion he has had with the family regarding aggressive we should be with his care. 4. Renal insufficiency, slightly worse, on IV fluids. 5. Lactic acidosis. Defer to others. Continue fluids. 6. History of mild anemia, stable. 7. Depression, on citalopram. We will follow with you. <ELECTRONICALLY SIGNED> By: Sudhir Ornelas MD 02/02/18 2042 0800 1048 Sudhir Ornelas MD /nt
--- NOTE | ~2018-02-01 | HC ---
[facility] [place] [address] CONSULTATION Name: NORAH CARRANZA Room #: 216-P ADM IN M.R.#: [id number] Admission: 02/01/18 Attend Phys: Shayan Pham DO Discharge: Date of : 30 Report #: [id number] THIS REPORT FOR: //name// CC: Shayan Ball REQUESTING PHYSICIAN: Shayan Pham DO CHIEF COMPLAINT: Metastatic prostate cancer. HISTORY OF PRESENT ILLNESS: The patient is an 87-year-old male who presented yesterday to the hospital with apparent signs and symptoms consistent with dehydration. He had altered mental status. The patient has had a poor p.o. intake over the last year, especially over the last few months and almost none over the last 2 weeks per the patient's son, Douglas and also per the patient's spouse, tSarla. The patient has had steady decline, increasing weight loss. He has had worsening mental status over the past week. The patient was previously very functional in his abilities. His ADLs were high. However, he has had a very dramatic decline. They had previously made decision to have him be DNR status given all these factors. I had also reviewed that they had discussed the possibility of hospice. The patient himself is currently confused with regards to his hospitalization, although he is able to tell me that he does not experience significant pain. He states that he is not short of breath, although he is dyspneic during conversation. He does have some confusion overall and keeps returning to certain aspects of his life. PAST MEDICAL HISTORY: Significant for metastatic prostate cancer with bone metastasis as well as lung metastasis, also has temporal arteritis history, glaucoma history, history of diverticulitis with perforation, depression, herpetic esophagitis. PAST SURGICAL HISTORY: Cholecystectomy, hernia repair, diskectomy, fasciotomy. MEDICATIONS: Previously on Ditropan, Cosopt, Protonix, Reglan, Lexapro, Flomax, Detrol, Cardizem. ALLERGIES: DOXYCYCLINE. SOCIAL HISTORY: Son Douglas is present for my interview as well as , Starla, daughter Monica is not present, although I will attempt to talk to her later. The patient is not a smoker, does not drink. REVIEW OF SYSTEMS: Again difficult to obtain at this time. He denies pain, significant at this time, although winces with movement. He additionally denies dyspnea, although he is dyspneic with conversation. He appears to be confused. [address] [address] CONSULTATION Name: NORAH CARRANZA [facility] ..#: [id number] Admission: 02/01/18 Attend Phys: Shayan Pham DO Discharge: Date of : 30 Report #: [id number] PHYSICAL EXAMINATION: VITAL SIGNS: Include temperature 36.5, pulse 94, respirations 18, blood pressure 119/64, 98% on 10 liters via high flow nasal cannula. GENERAL: The patient is alert, although his attention level is poor. He is not oriented to place or time currently. HEENT: Extraocular muscles appear to be intact. No scleral icterus. CARDIOVASCULAR: He has regular rate and rhythm at this time. LUNGS: Anteriorly is clear to auscultation. He does have some respiratory distress with speaking. He is able to get 3 words out without having to take a breath. He has minimal accessory muscle use. ABDOMEN: Soft, nontender to palpation. EXTREMITIES: Generalized cachexia. LABORATORY DATA: These include hemoglobin 10.8. He had a creatinine of 2.9. ASSESSMENT AND PLAN: 1. Metastatic prostate cancer. I have discussed extensively with family today. I spent approximately 50 minutes in discussion of advanced care planning. They have decided to pursue at this time hospice, likely inpatient hospice if the patient qualifies to meet with an inpatient hospice provider tomorrow at 8:30 a.m. Additionally, I will make changes to support his comfort including adding NSAID at this time. I discussed that the possibility that these medications may speed his and also I am aware that the patient has acute renal failure; however, given his bone pain this may be beneficial to him. It is at a slightly smaller dose at this current point in time. I did encourage them to use the opiate pain medication available, but changed to a liquid form. In addition, he has morphine IV for breakthrough pain, which he may require at dedicated hospice facility. I do believe he would benefit from the use of IV continued and may benefit additionally from steroid use, although preferring that medications that would not influence increased delirium used. I did discuss that we would hold off on steroids at this time, but that opiate medications could contribute to confusion as well as medications for anxiety that are often used. Additionally, discussed what home hospice would be like if the patient were to transition from hospice house at home, although I feel this is unlikely given his state of dehydration and acute renal failure. Additionally, the patient has poor enteral food intake and I think that this is likely to contribute to a short prognosis for him. 2. Acute renal failure likely due to his dehydration contributing to overall as above. 3. Acute hypoxic respiratory failure. Again, I discussed with family at this time that would not pursue mask oxygen administration or BiPAP. They are confirming DNR status with me today. I believe this is in his best interest and we discussed the possibility of either lowering the oxygen. We will titrate oxygen to comfort, provide medication to support air hunger comfort at this time. [facility] [address] [place] [address] CONSULTATION Name: NORAH CARRANZA Room #: 216-P [facility] IN M.R.#: [id number] Admission: 02/01/18 Attend Phys: Shayan Pham DO Discharge: Date of : 30 Report #: [id number] 4. Protein calorie malnutrition. I discussed with family that this is likely to worsen and ultimately possibly contribute to the cause of his , but that he is not experiencing likely pain related to this. 5. Delirium. Overall, I discussed that this is likely to progress despite whether or not using medications for discomfort. They are understanding of this at this time. I did provide my number for Monica to call for further discussion. Please contact me for any questions regarding this consultation. By: [id number] [id number] Jan Dunn DO /nt
[~2018-02-01 10:53] MED LIST changes: +CARDIZEM30 MG PO; +OXYBUTYNIN 5 MG5 M2 PO
[2018-02-01 12:04] LABS: BE(vivo) -5.8 mmol/L (-2 to +3); HCO3 19.2 mmol/L (22.0-26.0); PCO2 36.2 mmHg (35.0-45.0); pH 7.343 (7.360-7.450); sO2 94.6 % (92.0-98.0)
[2018-02-01 12:52] LABS: MCH 29.6 pg (26.0-34.0); MCHC 31.7 g/dL (28.0-37.0); MCV 93.2 fL (80.0-100.0); PLATELET COUNT 443 thou/uL (150-400); RDW 16.6 % (10.5-14.5); WBC 14.2 thou/uL (4.0-11.0)
[2018-02-01 13:02] LABS: ANION GAP 17 mmol/L (7-16); BUN 48 mg/dL (7-18); CALCIUM 8.1 mg/dL (8.5-10.1); CHLORIDE 106 mmol/L (98-107); CO2 20 mmol/L (21-32); CREATININE 2.7 mg/dL (0.7-1.3); GLUCOSE 94 mg/dL (74-106); POTASSIUM 5.3 mmol/L (3.5-5.1); SODIUM 143 mmol/L (136-145)
[2018-02-01 13:16] LABS: ABSOLUTE NEUTROPHILS 12.2 thou/uL (1.4-8.2); ANISOCYTOSIS 1+
[2018-02-01 13:17] LABS: ALBUMIN 1.7 g/dL (3.4-5.0); LIPASE 51 U/L (73-393); MAGNESIUM 2.5 mg/dL (1.8-2.4); SGOT 49 U/L (15-37); SGPT 32 U/L (30-65); TOTAL BILIRUBIN 0.8 mg/dL (<0.1-1.0); TOTAL PROTEIN 6.9 g/dL (6.4-8.2); TROPONIN-I < 0.04 ng/mL (<0.06)
[2018-02-02] VITALS (12 sets, daily range): BP systolic 94–119; BP diastolic 37–74
[2018-02-02 03:56] LABS: CALCIUM 7.1 mg/dL (8.5-10.1); CREATININE 2.9 mg/dL (0.7-1.3); POTASSIUM 4.7 mmol/L (3.5-5.1)
[2018-02-02 04:02] LABS: ABSOLUTE NEUTROPHILS 10.6 thou/uL (1.4-8.2); EOSINOPHILS 0.1 % (0.0-3.0); HEMATOCRIT 33.7 % (42.0-52.0); LYMPHOCYTES 3.4 % (24.0-44.0); MCH 30.2 pg (26.0-34.0); MCHC 32.1 g/dL (28.0-37.0); MCV 94.1 fL (80.0-100.0); MONOCYTES 2.7 % (1.0-8.0); POLYS 93.8 % (36.0-66.0); RBC 3.59 mil/uL (4.50-6.00); WBC 11.3 thou/uL (4.0-11.0)
[2018-02-02 04:06] LABS: HEMOGLOBIN 10.8 gm/dL (14.0-18.0); PLATELET COUNT 334 thou/uL (150-400)
[2018-02-03 03:50] LABS: CALCIUM 6.6 mg/dL (8.5-10.1); POTASSIUM 4.4 mmol/L (3.5-5.1)
[2018-02-03 04:08] LABS: ABSOLUTE NEUTROPHILS 12.3 thou/uL (1.4-8.2); BASOPHILS 0.1 % (0.0-2.0); HEMATOCRIT 29.1 % (42.0-52.0); HEMOGLOBIN 9.6 gm/dL (14.0-18.0); LYMPHOCYTES 3.9 % (24.0-44.0); MCH 30.5 pg (26.0-34.0); MCHC 32.9 g/dL (28.0-37.0); MCV 92.8 fL (80.0-100.0); MONOCYTES 2.7 % (1.0-8.0); PLATELET COUNT 279 thou/uL (150-400); POLYS 93.3 % (36.0-66.0); RBC 3.14 mil/uL (4.50-6.00); RDW 16.9 % (10.5-14.5); WBC 13.2 thou/uL (4.0-11.0)
[2018-02-03 04:45] VITALS: BP 112/58
[2018-02-03 07:19] VITALS: BP 103/59
[2018-02-03 11:05] VITALS: BP 109/55
[2018-02-03 15:38] VITALS: BP 114/70
== END 2018-02-03 16:27 | disposition hospice, inpatient (51) | DRG 180 ==
LOC: ER 10:53 → ICU 13:33 → EROBS 13:33 → ICU 16:58 → 2N 02-02 15:36
PROVIDERS: Emergency Medicine; Family Medicine; Internal Medicine Pulmonary Disease
DX: C78.00 Secondary malignant neoplasm of unspecified lung (principal); J96.01 Acute respiratory failure with hypoxia; G93.41 Metabolic encephalopathy; R64 Cachexia; N17.9 Acute kidney failure, unspecified; E87.2 Acidosis; E46 Unspecified protein-calorie malnutrition; Z68.1 Body mass index [BMI] 19.9 or less, adult; C61 Malignant neoplasm of prostate; H40.9 Unspecified glaucoma; G89.29 Other chronic pain; F32.9 Major depressive disorder, single episode, unspecified; K21.9 Gastro-esophageal reflux disease without esophagitis; N40.0 Benign prostatic hyperplasia without lower urinary tract symptoms; E86.0 Dehydration; E87.5 Hyperkalemia; R91.1 Solitary pulmonary nodule; I48.0 Paroxysmal atrial fibrillation; R13.10 Dysphagia, unspecified; N18.9 Chronic kidney disease, unspecified; D63.8 Anemia in other chronic diseases classified elsewhere; R41.0 Disorientation, unspecified; Z66 Do not resuscitate; Z79.82 Long term (current) use of aspirin; Z93.3 Colostomy status; Z90.49 Acquired absence of other specified parts of digestive tract; Z98.42 Cataract extraction status, left eye; Z98.41 Cataract extraction status, right eye; Z88.8 Allergy status to other drugs, medicaments and biological substances; Z79.899 Other long term (current) drug therapy
CPT/HCPCS: 10078; 10081